=== PATIENT | male | born 1950 | race African-American/Black ===

== ENCOUNTER 2018-11-19 19:01 | Inpatient (IN) | payer OTHER ==
--- NOTE | 2018-11-19 19:41 | PDOC ---
History of Present Illness - General Chief Complaint: Tremors Stated Complaint: CHILLS/PAIN Time Seen by Provider: 11/19/18 19:27 Past History - Past Medical History Allergies/Adverse Reactions: Allergies Allergy/AdvReac Type Severity Reaction Status Date / Time No Known Allergies Allergy Verified 11/19/18 19:03 CVA: Yes COPD: No Seizures: Yes - Suicide/Smoking/Psychosocial Hx Smoking History: Unknown if ever smoked *Physical Exam - Vital Signs Last Vital Signs Temp Pulse Resp BP Pulse Ox 98.3 F 112 H 18 197/92 H 95 11/19/18 19:04 11/19/18 19:04 11/19/18 19:04 11/19/18 19:04 11/19/18 19:04
[2018-11-19] MEDS ORDERED: SODIUM CHLORIDE 0.9% 500 ML INFUS.BAG IV ONE (19:52)
[2018-11-19] MEDS ORDERED: ACETAMINOPHEN 1000 MG/100 ML VIAL (NON FORMULARY) IVPB ONE (19:52)
[2018-11-19] MEDS ORDERED: ACETAMINOPHEN INJECTION 100 ML IVPB ONE (19:56)
[2018-11-19 20:22] LABS: BASO % 0.6 % (0-2.0); EOS % 0.4 % (0-4.5); HEMATOCRIT 38.3 % (35.4-49); HEMOGLOBIN 13.1 GM/dL (11.7-16.9); LYMPH % 20.2 % (8-40); MCH 35.2 pg (25.7-33.7); MCHC 34.3 g/dl (32.0-35.9); MEAN CELL VOLUME 102.8 fl (80-96); MEAN PLT VOLUME 10.4 fl (7.5-11.1); NEUT % 72.8 % (42.8-82.8); PLATELET COUNT 149 K/MM3 (134-434); RBC 3.73 M/mm3 (4.00-5.60); RDW 13.4 % (11.9-15.9); WHITE BLOOD COUNT 3.9 K/mm3 (4.0-10.0)
[2018-11-19 20:26] LABS: INR 1.17 (0.83-1.09); PROTHROMBIN TIME (PATIENT) 13.8 SEC (9.7-13.0)
[2018-11-19 20:55] LABS: ALBUMIN 4.2 g/dl (3.4-5.0); BILIRUBIN,TOTAL 0.4 mg/dL (0.2-1); CALCIUM 9.3 mg/dL (8.5-10.1); CREATININE 1.2 mg/dL (0.55-1.3); POTASSIUM 3.7 mmol/L (3.5-5.1); TOT PROT 7.7 g/dl (6.4-8.2)
--- NOTE | 2018-11-19 22:31 | HP ---
CHIEF COMPLAINT: Episode of right hand tremor (similar to previous seizures) earlier today. PCP: Dr. Ackerman HISTORY OF PRESENT ILLNESS: This is a 68 year old male with PMH significant for HTN, HIV, CVA, and multiple seizures. He presented to the ER with complaints of a right hand tremor around 7 ,8 AM on 11/19. He states that the episode began suddenly , and he had to use his left hand to hold his right hand to keep it from moving. He bañuelos snot recall how long the episode lasted, and does not remember whether it was precluded by any aura like symptoms. He states that he lied down when this was happening, and called out to his son, who he lives with, for help. He believes that this tremor is very similar to his previous seizures, the last of which occurred in 2018. He denies any loss of consciousness, falling down, or head trauma, but admits that he does not remember much of what happened from the time of the seizure to his presentation to the ER. He denies any associated fevers, chills, dizziness, light headedness, SOB, chest pain, cough,palpitations, nausea, vomiting, diarrhea, constipation, dysuria, urgency, or hematuria. He states that he is compliant with all his medications. He denies any recent travel, illness exposure to sick contacts, or changes in his medications. He does not know when he had his CD4 count or viral load last tested. ER course was notable for: (1) CT Head: Encephalomalacia in temporal lobe, no acute pathology (2) Lactid Acid 2.5 (3) B/P 197/92 Recent Travel: None PAST MEDICAL HISTORY: HTN, HIV, CVA, and multiple seizures PAST SURGICAL HISTORY: Patient unable to recall Social History: Smoking: Quit 15 years ago, smoked infrequently Alcohol: No recent use Drugs: denies Allergies No Known Allergies Allergy (Verified 11/19/18 19:03) HOME MEDICATIONS: Home Medications Medication Instructions Recorded Darunavir Ethanolate [Prezista -] 600 mg PO BID 11/19/18 Etravirine [Intelence -] 200 mg PO BID 11/19/18 Gabapentin 300 mg PO TID 11/19/18 Hydrochlorothiazide 25 mg PO DAILY 11/19/18 Lamivudine 150 mg PO BID 11/19/18 Levetiracetam 1,000 mg PO BID 11/19/18 Omeprazole 20 mg PO DAILY 11/19/18 Ritonavir 100 mg PO BID 11/19/18 REVIEW OF SYSTEMS CONSTITUTIONAL: Absent: fever, chills, diaphoresis, generalized weakness, malaise, loss of appetite, weight change HEENT: Absent: rhinorrhea, nasal congestion, throat pain, throat swelling, difficulty swallowing, mouth swelling, ear pain, eye pain, visual changes CARDIOVASCULAR: Absent: chest pain, syncope, palpitations, irregular heart rate, lightheadedness , peripheral edema RESPIRATORY: Absent: cough, shortness of breath, dyspnea with exertion, orthopnea, wheezing, stridor, hemoptysis GASTROINTESTINAL: Absent: abdominal pain, abdominal distension, nausea, vomiting, diarrhea, constipation, melena, hematochezia GENITOURINARY: Absent: dysuria, frequency, urgency, hesitancy, hematuria, flank pain, genital pain MUSCULOSKELETAL: Absent: myalgia, arthralgia, joint swelling, back pain, neck pain SKIN: Absent: rash, itching, pallor HEMATOLOGIC/IMMUNOLOGIC: Absent: easy bleeding, easy bruising, lymphadenopathy, frequent infections ENDOCRINE: Absent: unexplained weight gain, unexplained weight loss, heat intolerance, cold intolerance NEUROLOGIC: Absent: headache, focal weakness or paresthesias, dizziness, unsteady gait, seizure, mental status changes, bladder or bowel incontinence PSYCHIATRIC: Absent: anxiety, depression, suicidal or homicidal ideation, hallucinations. PHYSICAL EXAMINATION Vital Signs - 24 hr 11/19/18 11/19/18 19:04 19:41 Temperature 98.3 F Pulse Rate 112 H Respiratory 18 Rate Blood Pressure 197/92 H O2 Sat by Pulse 95 98 Oximetry (%) GENERAL: AOx2, cooperative HEAD: Normal with no signs of trauma. 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 Moist mucous membranes. NECK: Normal range of motion, supple without lymphadenopathy, JVD, or masses. LUNGS: Breath sounds equal, clear to auscultation bilaterally. No wheezes, and no crackles. No accessory muscle use. HEART: Regular rate and rhythm, normal S1 and S2 without murmur, rub or gallop. ABDOMEN: Soft, nontender, not distended, normoactive bowel sounds, no guarding, no rebound, no masses. No hepatomegaly or splenomegaly. MUSCULOSKELETAL: Normal range of motion at all joints. No bony deformities or tenderness. No CVA tenderness. UPPER EXTREMITIES: 2+ pulses, warm, well-perfused. No cyanosis. No clubbing. No peripheral edema. LOWER EXTREMITIES: 2+ pulses, warm, well-perfused. No calf tenderness. No peripheral edema. NEUROLOGICAL: Motor 5/5 B/L Sensations intact B/L Cranial nerves II-XII intact. PSYCHIATRIC: Cooperative. Good eye contact. Appropriate mood and affect. SKIN: Warm, dry, normal turgor, no rashes or lesions noted, normal capillary refill. Laboratory Results - last 24 hr 11/19/18 11/19/18 11/19/18 20:03 20:03 20:03 WBC 3.9 L RBC 3.73 L Hgb 13.1 Hct 38.3 MCV 102.8 H MCH 35.2 H MCHC 34.3 RDW 13.4 Plt Count 149 MPV 10.4 Absolute Neuts (auto) 2.8 Neutrophils % 72.8 Lymphocytes % 20.2 Monocytes % 6.0 Eosinophils % 0.4 Basophils % 0.6 Nucleated RBC % 0 PT with INR INR Sodium 142 Potassium 3.7 Chloride 106 Carbon Dioxide 25 Anion Gap 11 BUN 17.0 Creatinine 1.2 Est GFR (CKD-EPI)AfAm 72.59 Est GFR (CKD-EPI)NonAf 62.63 Random Glucose 105 Lactic Acid Calcium 9.3 Total Bilirubin 0.4 AST 18 ALT 20 Alkaline Phosphatase 95 LD Total 164 Creatine Kinase 182 Creatine Kinase Index 0.9 CK-MB (CK-2) 1.8 Troponin I < 0.02 Total Protein 7.7 Albumin 4.2 Lipase 11/19/18 11/19/18 11/19/18 20:03 20:03 20:15 WBC RBC Hgb Hct MCV MCH MCHC RDW Plt Count MPV Absolute Neuts (auto) Neutrophils % Lymphocytes % Monocytes % Eosinophils % Basophils % Nucleated RBC % PT with INR 13.80 H INR 1.17 H Sodium Potassium Chloride Carbon Dioxide Anion Gap BUN Creatinine Est GFR (CKD-EPI)AfAm Est GFR (CKD-EPI)NonAf Random Glucose Lactic Acid 2.5 H* Calcium Total Bilirubin AST ALT Alkaline Phosphatase LD Total Creatine Kinase Creatine Kinase Index CK-MB (CK-2) Troponin I Total Protein Albumin Lipase 121 ASSESSMENT/PLAN: This is a 68 year old male with PMH significant for HTN, HIV, CVA, and multiple seizures. He presented to the ER with complaints of a right hand tremor around 7 ,8 AM on 11/19. #Tremor right hand - Similar to previous episodes of seizures, suspicion for repeat seizure is high - Keppra 1000mg given - On Keppra 1000mg BID at home - Neuro (Dr. Dejesus) consulted - Neurochecks Q4H - Fall/Seizure precautions #Lactic Acidosis - 2.5 -> - Will continue to trend - N/S @ 100 (1x given in ER) #Hx of HTN - 197/97 -> 151/86 spontaneously - Add Norvasc 5mg if BP uncontrolled #Hx of HIV - Home meds resumed - CD4 and HIV viral load sent. If CD4 count is low, consider MRI to check for infectious etiology of seizures (toxoplasmosis, lymphoma) #FEN - N/S @ 100 (1x given in ER) - Mg, Phos ordered - NPO #DVT PE - Heparin 5000 SQ Visit type - Emergency Visit Emergency Visit: Yes ED Registration Date: 11/19/18 Care time: The patient presented to the Emergency Department on the above date and was hospitalized for further evaluation of their emergent condition. - New Patient This patient is new to me today: Yes Date on this admission: 11/20/18 - Critical Care Critical Care patient: No ATTENDING PHYSICIAN STATEMENT I saw and evaluated the patient. I reviewed the resident's note and discussed the case with the resident. I agree with the resident's findings and plan as documented. SUBJECTIVE: OBJECTIVE: ASSESSMENT AND PLAN:
--- NOTE | 2018-11-19 22:38 | PDOC ---
Documentation entered by Deonna Cain SCRIBE, acting as scribe for Tonya Valentino MD. Tonya Valentino MD: This documentation has been prepared by the Payton wynn Nirvannie, SCRIBE, under my direction and personally reviewed by me in its entirety. I confirm that the documentation accurately reflects all work, treatment, procedures, and medical decision making performed by me. History of Present Illness - General Chief Complaint: Tremors Stated Complaint: CHILLS/PAIN Time Seen by Provider: 11/19/18 19:27 History Source: Family (Son.) Exam Limitations: Clinical Condition - History of Present Illness Initial Comments: 11/19/18 21:18 The patient is a 68 year old male, with a significant past medical history of HTN, seizures (last seizure a year ago), HIV, and history of CVA, who presents to the emergency department with, AMS and right hand tremors. As per patients son, the patient is having tremors to the right arm (similar to previous seizures),has difficulty answering questions, is experiencing chills. Son notes the patient is independent at baseline. Son denies any nausea, vomiting, or urinary/bowel symptoms. Allergies: KATHY Neurologist: Kylee Past History - Past Medical History Allergies/Adverse Reactions: Allergies Allergy/AdvReac Type Severity Reaction Status Date / Time No Known Allergies Allergy Verified 11/19/18 19:03 Home Medications: Ambulatory Orders Darunavir Ethanolate [Prezista -] 600 mg PO BID 11/19/18 Etravirine [Intelence -] 200 mg PO BID 11/19/18 Gabapentin 300 mg PO TID 11/19/18 Hydrochlorothiazide 25 mg PO DAILY 11/19/18 Lamivudine 150 mg PO BID 11/19/18 Levetiracetam 1,000 mg PO BID 11/19/18 Omeprazole 20 mg PO DAILY 11/19/18 Ritonavir 100 mg PO BID 11/19/18 CVA: Yes COPD: No Seizures: Yes - Suicide/Smoking/Psychosocial Hx Smoking History: Unknown if ever smoked Review of Systems - Review of Systems Able to Perform ROS?: No Comments:: 11/19/18 21:18 Unable to perform ROS secondary to AMS. *Physical Exam - Vital Signs Last Vital Signs Temp Pulse Resp BP Pulse Ox 98.3 F 112 H 18 197/92 H 98 11/19/18 19:04 11/19/18 19:04 11/19/18 19:04 11/19/18 19:04 11/19/18 19:41 - Physical Exam Comments: 11/19/18 21:18 GENERAL: Awake, alert, and fully oriented, in no acute distress HEAD: No signs of trauma EYES: +Right eye blindness. ENT: Auricles normal inspection, hearing grossly normal, nares patent, oropharynx clear without exudates. Moist mucosa NECK: Normal ROM, supple, no lymphadenopathy, JVD, or masses LUNGS: Breath sounds equal, clear to auscultation bilaterally. No wheezes, and no crackles HEART: Regular rate and rhythm, normal S1 and S2, no murmurs, rubs or gallops ABDOMEN: Soft, nontender, normoactive bowel sounds. No guarding, no rebound. No masses EXTREMITIES: Normal range of motion, no edema. No clubbing or cyanosis. No cords, erythema, or tenderness NEUROLOGICAL: +Strength 4/5 on the right. SKIN: Warm, Dry, normal turgor, no rashes or lesions noted Heart Score/ECG Review - ECG Intrepretation Rhythm: Regular Rhythm - [place]: Normal - P and MI Prominent R with upright T in V1 (true posterior SD): No Delta Wave(s) Present: No WPW: No - QRS Poor R Wave Progression: No Q Wave Present: No - ST and T Early Repolarization: No Non Specific ST-T Wave changes: No - ECG Impressions Normal ECG: Yes Non-specific ST Elevation: No Ischemic Changes: No Bradycardia: No Torsades perla Pointes: No ED Treatment Course - LABORATORY CBC & Chemistry Diagram: 11/19/18 20:03 11/19/18 20:03 - ADDITIONAL ORDERS Additional order review: Laboratory Results 11/19/18 20:03 PT with INR 13.80 H INR 1.17 H 11/19/18 20:03 RBC 3.73 L MCV 102.8 H MCHC 34.3 RDW 13.4 MPV 10.4 Neutrophils % 72.8 Lymphocytes % 20.2 Monocytes % 6.0 Eosinophils % 0.4 Basophils % 0.6 - RADIOLOGY Radiology Studies Ordered: Category Date Time Status HEAD CT WITHOUT CONTRAST [CT] Stat CT Scan 11/19/18 19:53 Ordered CHEST PA & LAT [RAD] Stat Radiology 11/19/18 20:42 Ordered - Medications Given in the ED: ED Medications Discontinued Medications Generic Name Dose Route Start Last Admin Trade Name Toby PRJosesito Reason Stop Dose Admin Acetaminophen 1,000 mg 11/19/18 19:52 11/19/18 19:54 Ofirmev Injection - IVPB 11/19/18 19:53 1,000 mg ONCE ONE Administration Sodium Chloride 1,000 ml 11/19/18 19:52 11/19/18 19:54 Normal Saline - IV 11/19/18 19:53 1,000 ml ONCE ONE Administration Medical Decision Making - Medical Decision Making 11/19/18 22:35 Patient Name: MARGRET UMAÑA THIS IS A PRELIMINARY REPORT FROM [facility] DATE OF SERVICE: 2018-11-19 21:04:24 IMAGES: 144 EXAM: HEAD CT WITHOUT CONTRAST HISTORY: Confusion. COMPARISON: None. FINDINGS: Encephalomalacia is seen within the left temporal lobe and to a lesser degree left parietal lobe. No evidence for acute hemorrhage. Mild global volume loss. Vascular calcifications noted. No hydrocephalus or extra-axial fluid collection. No acute calvarial abnormalities. IMPRESSION: 1. No evidence for acute intracranial pathology. *DC/Admit/Observation/Transfer Diagnosis at time of Disposition: Altered mental status, HIV disease - Discharge Dispostion Condition at time of disposition: Guarded Decision to Admit order: Yes - Referrals - Patient Instructions - Post Discharge Activity
[2018-11-20] MEDS ORDERED: levETIRAcetam 500 MG/5 ML INJECTION VIAL IVPB ONE ×2 (00:08→00:16)
[2018-11-20 00:33] LABS: EPI CELLS 0.8 /HPF (0-5/HPF); HYALINE CASTS 2 /lpf (0-8); URINE APPEARANCE CLEAR; URINE BACTERIA 1.4 /hpf (NEGATIVE); URINE BILIRUBIN NEGATIVE (NEGATIVE); URINE COLOR YELLOW; URINE GLUCOSE (UA) NEGATIVE (NEGATIVE); URINE KETONE NEGATIVE (NEGATIVE); URINE LEUK ESTERASE NEGATIVE (NEGATIVE); URINE NITRITE NEGATIVE (NEGATIVE); URINE PROTEIN 1+ (NEGATIVE); URINE RBC 1 /hpf (0-4); URINE WBC 0 /hpf (0-5)
--- NOTE | 2018-11-20 00:54 | PN ---
Teaching Attending Note Name of Resident: Shay Lopes ATTENDING PHYSICIAN STATEMENT I saw and evaluated the patient. I reviewed the resident's note and discussed the case with the resident. I agree with the resident's findings and plan as documented. SUBJECTIVE: 68 year old male with PMH significant for HTN, HIV, CVA, and seizure disorder. Brought in with right hand tremors AMS with son, started about 2 hours before arrival. Tremors to the right arm- allegedly similar to prior seizure episodes. Patient himself offers very little history. OBJECTIVE: Last Vital Signs Temp Pulse Resp BP Pulse Ox 98.1 F 91 H 20 151/86 98 11/19/18 23:46 11/19/18 23:46 11/19/18 23:46 11/19/18 23:46 11/19/18 23:46 general -nontoxic heent -atrauamtic, nc neck -supple cv-s1+S2+, rrr chest clear abd-soft, nt, bs+ ext - no pedal edema Abnormal Lab Results 11/19/18 11/19/18 11/19/18 20:03 20:03 20:15 WBC 3.9 L RBC 3.73 L MCV 102.8 H MCH 35.2 H PT with INR 13.80 H INR 1.17 H Lactic Acid 2.5 H* Urine Protein 11/19/18 23:08 WBC RBC MCV MCH PT with INR INR Lactic Acid Urine Protein 1+ H head ct reviewed -left parietal lobe extensive encephalomalacia, no acute insults imaging studies reviewed ASSESSMENT AND PLAN: #Likely breakthrough seizure. May be from old stroke with resultant left parietal encephalomalacia -admit to med/surg -load 1g keppra IV -neuro checks -keep npo -monitor vs closely -c/w keppra 1g bid IV for now -neurology f/u #HIV with unknown CD4 count -obtain CD4 and HIV viral load - from PCP and/or order here in hospital -hold HIV meds as his listed regimen appears to be incomplete -obtain complete HIV regimen from pharmacy -if CD4 count significantly low, should consider brain MRI to r/o alternative causes of seizures such as toxoplasmosis or lymphoma -if significantly low CD, would start PJP, MAC prophylaxis #lactic acidosis -probably related to seizure episode -IV fluid hydration -trend lactate #Leukopenia - may be related to underlying HIV DVT prophylaxis
[2018-11-20] MEDS ORDERED: SODIUM CHLORIDE 1,000 ML IV SCH ×2 (04:00→06:32)
[2018-11-20] MEDS ORDERED: GABAPENTIN 100 MG CAPSULE (FP) ONE (06:15)
[2018-11-20] MEDS: GABAPENTIN 300 MG CAPSULE (FP) PO SCH ×2 (06:24→15:34)
[2018-11-20 07:11] LABS: BASO % 0.6 % (0-2.0); HEMATOCRIT 35.7 % (35.4-49); HEMOGLOBIN 12.4 GM/dL (11.7-16.9); LYMPH % 38.3 % (8-40); MCH 35.8 pg (25.7-33.7); MCHC 34.6 g/dl (32.0-35.9); MEAN CELL VOLUME 103.5 fl (80-96); MEAN PLT VOLUME 10.3 fl (7.5-11.1); MONO % 7.8 % (3.8-10.2); NEUT % 52.3 % (42.8-82.8); PLATELET COUNT 131 K/MM3 (134-434); RBC 3.45 M/mm3 (4.00-5.60); RDW 13.7 % (11.9-15.9); WHITE BLOOD COUNT 4.9 K/mm3 (4.0-10.0)
[2018-11-20 07:26] LABS: ALBUMIN 3.7 g/dl (3.4-5.0); BILIRUBIN,TOTAL 0.8 mg/dL (0.2-1); BLOOD UREA NITROGEN 13.2 mg/dL (7-18); CALCIUM 8.9 mg/dL (8.5-10.1); PHOSPHOROUS 2.6 mg/dL (2.5-4.9); POTASSIUM 3.6 mmol/L (3.5-5.1)
--- NOTE | 2018-11-20 08:43 | PN ---
Physical Exam: SUBJECTIVE: Patient seen and examined; no new complaints. Somewhat poor historian. Lactate repeat pending. Pending ID consultation, neurology consult. Continue with neuro checks and seizure precautions. CXR shows multiple old rib fractures CT head noted; MRI w/w/o pending Thrombocytopenia noted; likely 2/2 HIV Macrocytosis without anemia demonstrated 10 sys ROS done and negative aside from HPI OBJECTIVE: Vital Signs Period Temp Pulse Resp BP Sys/Mercado Pulse Ox Last 24 Hr 98.1 F-98.3 F 64-112 18-20 151-197/81-92 87-98 GENERAL: The patient is awake, alert, and fully oriented, in no acute distress. HEAD: Normal with no signs of trauma. EYES: PERRL, extraocular movements intact, sclera anicteric, conjunctiva clear. No ptosis. ENT: Ears normal, nares patent, oropharynx clear without exudates, moist mucous membranes. NECK: Trachea midline, full range of motion, supple. LUNGS: Breath sounds equal, clear to auscultation bilaterally, no wheezes HEART: Regular rate and rhythm, S1, S2 without murmur, rub or gallop. ABDOMEN: Soft, nontender, nondistended, normoactive bowel sounds, no guarding EXTREMITIES: 2+ pulses, warm, well-perfused, no edema. NEUROLOGICAL: Cranial nerves II through XII grossly intact. Normal speech, gait not observed. PSYCH: Normal mood, normal affect. SKIN: Warm, dry, normal turgor, no rashes or lesions noted Laboratory Results - last 24 hr 11/19/18 11/19/18 11/19/18 20:03 20:03 20:03 WBC 3.9 L RBC 3.73 L Hgb 13.1 Hct 38.3 MCV 102.8 H MCH 35.2 H MCHC 34.3 RDW 13.4 Plt Count 149 MPV 10.4 Absolute Neuts (auto) 2.8 Neutrophils % 72.8 Lymphocytes % 20.2 Monocytes % 6.0 Eosinophils % 0.4 Basophils % 0.6 Nucleated RBC % 0 PT with INR INR Sodium 142 Potassium 3.7 Chloride 106 Carbon Dioxide 25 Anion Gap 11 BUN 17.0 Creatinine 1.2 Est GFR (CKD-EPI)AfAm 72.59 Est GFR (CKD-EPI)NonAf 62.63 Random Glucose 105 Lactic Acid Calcium 9.3 Phosphorus Magnesium Total Bilirubin 0.4 AST 18 ALT 20 Alkaline Phosphatase 95 LD Total 164 Creatine Kinase 182 Creatine Kinase Index 0.9 CK-MB (CK-2) 1.8 Troponin I < 0.02 Total Protein 7.7 Albumin 4.2 Lipase Urine Color Urine Appearance Urine pH Ur Specific [place] Urine Protein Urine Glucose (UA) Urine Ketones Urine Blood Urine Nitrite Urine Bilirubin Urine Urobilinogen Ur Leukocyte Esterase Urine WBC (Auto) Urine RBC (Auto) Urine Casts (Auto) U Epithel Cells (Auto) Urine Bacteria (Auto) 11/19/18 11/19/18 11/19/18 20:03 20:03 20:15 WBC RBC Hgb Hct MCV MCH MCHC RDW Plt Count MPV Absolute Neuts (auto) Neutrophils % Lymphocytes % Monocytes % Eosinophils % Basophils % Nucleated RBC % PT with INR 13.80 H INR 1.17 H Sodium Potassium Chloride Carbon Dioxide Anion Gap BUN Creatinine Est GFR (CKD-EPI)AfAm Est GFR (CKD-EPI)NonAf Random Glucose Lactic Acid 2.5 H* Calcium Phosphorus Magnesium Total Bilirubin AST ALT Alkaline Phosphatase LD Total Creatine Kinase Creatine Kinase Index CK-MB (CK-2) Troponin I Total Protein Albumin Lipase 121 Urine Color Urine Appearance Urine pH Ur Specific [place] Urine Protein Urine Glucose (UA) Urine Ketones Urine Blood Urine Nitrite Urine Bilirubin Urine Urobilinogen Ur Leukocyte Esterase Urine WBC (Auto) Urine RBC (Auto) Urine Casts (Auto) U Epithel Cells (Auto) Urine Bacteria (Auto) 11/19/18 11/20/18 11/20/18 23:08 04:45 05:30 WBC RBC Hgb Hct MCV MCH MCHC RDW Plt Count MPV Absolute Neuts (auto) Neutrophils % Lymphocytes % Monocytes % Eosinophils % Basophils % Nucleated RBC % PT with INR INR Sodium 141 Potassium 3.6 Chloride 108 H Carbon Dioxide 26 Anion Gap 8 BUN 13.2 Creatinine 1.0 Est GFR (CKD-EPI)AfAm 90.50 Est GFR (CKD-EPI)NonAf 78.08 Random Glucose 95 Lactic Acid 2.5 H* Calcium 8.9 Phosphorus 2.6 Magnesium 2.0 Total Bilirubin 0.8 AST 17 ALT 17 Alkaline Phosphatase 85 LD Total Creatine Kinase Creatine Kinase Index CK-MB (CK-2) Troponin I Total Protein 7.0 Albumin 3.7 Lipase Urine Color Yellow Urine Appearance Clear Urine pH 6.0 Ur Specific [place] 1.027 Urine Protein 1+ H Urine Glucose (UA) Negative Urine Ketones Negative Urine Blood Negative Urine Nitrite Negative Urine Bilirubin Negative Urine Urobilinogen 1.0 Ur Leukocyte Esterase Negative Urine WBC (Auto) 0 Urine RBC (Auto) 1 Urine Casts (Auto) 2 U Epithel Cells (Auto) 0.8 Urine Bacteria (Auto) 1.4 11/20/18 06:00 WBC 4.9 RBC 3.45 L Hgb 12.4 Hct 35.7 MCV 103.5 H MCH 35.8 H MCHC 34.6 RDW 13.7 Plt Count 131 L MPV 10.3 Absolute Neuts (auto) 2.6 Neutrophils % 52.3 D Lymphocytes % 38.3 D Monocytes % 7.8 Eosinophils % 1.0 D Basophils % 0.6 Nucleated RBC % 0 PT with INR INR Sodium Potassium Chloride Carbon Dioxide Anion Gap BUN Creatinine Est GFR (CKD-EPI)AfAm Est GFR (CKD-EPI)NonAf Random Glucose Lactic Acid Calcium Phosphorus Magnesium Total Bilirubin AST ALT Alkaline Phosphatase LD Total Creatine Kinase Creatine Kinase Index CK-MB (CK-2) Troponin I Total Protein Albumin Lipase Urine Color Urine Appearance Urine pH Ur Specific [place] Urine Protein Urine Glucose (UA) Urine Ketones Urine Blood Urine Nitrite Urine Bilirubin Urine Urobilinogen Ur Leukocyte Esterase Urine WBC (Auto) Urine RBC (Auto) Urine Casts (Auto) U Epithel Cells (Auto) Urine Bacteria (Auto) Active Medications Generic Name Dose Route Start Last Admin Trade Name Freq PRN Reason Stop Dose Admin Darunavir 600 mg 11/20/18 10:00 Prezista - PO BID SANGITA Etravirine 200 mg 11/20/18 10:00 Intelence - PO BID SANGITA Gabapentin 300 mg 11/20/18 06:00 11/20/18 06:24 Neurontin - PO 300 mg TID SANGITA Administration Heparin Sodium (Porcine) 5,000 unit 11/20/18 14:00 Heparin - SQ TID SANGITA Hydrochlorothiazide 25 mg 11/20/18 10:00 Hctz - PO DAILY SANGITA Sodium Chloride 1,000 mls @ 100 mls/hr 11/20/18 06:32 11/20/18 06:44 Normal Saline - IV 100 mls/hr ASDIR SANGITA Administration Lamivudine 150 mg 11/20/18 10:00 Epivir - PO BID SANGITA Levetiracetam 1,000 mg 11/20/18 10:00 Keppra - PO BID SANGITA Pantoprazole Sodium 20 mg 11/20/18 10:00 Protonix - PO DAILY SANGITA Ritonavir 100 mg 11/20/18 10:00 Norvir - PO BID SANGITA Discussed imaging and diagnostics above ASSESSMENT/PLAN: Patient presents with suspected seizure; he has HIV as well with CD4 count pending. MRI pending. Neuro and ID consutlations pending. Repeat lactate pending. Problems include: -Suspected Seizure (Got IV keppra, continue 1000 BID and FU with neuro consult) -Positive lactate -Neuroimaging changes in the setting of HIV with unknown CD4+ count/old CVA ( MRI pending, given HIV want to ensure no CUTTER HOT KNIFE-cause of sz) -Macrocytosis without anemia (B12, folate pending) -Hx CVA (Verify and continue home medciations) -Hx HTN (Monitor; verify and continue home medications) -GERD (continue home protonix) Visit type - Emergency Visit Emergency Visit: No - New Patient This patient is new to me today: No - Critical Care Critical Care patient: No
[2018-11-20] MEDS ORDERED: HYDROCHLOROTHIAZIDE 25 MG TABLET (FP) PO SCH (10:00)
[2018-11-20] MEDS ORDERED: levETIRAcetam 500 MG TABLET (FP) PO SCH (10:00)
[2018-11-20] MEDS ORDERED: lamiVUDine 150 MG TABLET PO SCH (10:00)
[2018-11-20] MEDS ORDERED: DARUNAVIR ETHANOLATE 600 MG TAB PO SCH (10:00)
[2018-11-20] MEDS ORDERED: RITONAVIR 100 MG TABLET PO SCH (10:00)
[2018-11-20] MEDS ORDERED: PANTOPRAZOLE 20 MG TABLET (FP) PO SCH (10:00)
[2018-11-20] MEDS ORDERED: ETRAVIRINE 200 MG TABLET PO SCH (10:00)
--- NOTE | 2018-11-20 10:28 | EKG ---
Test Reason : Blood Pressure : / mmHG Vent. Rate : 070 BPM Atrial Rate : 070 BPM P-R Int : 162 ms QRS Dur : 086 ms QT Int : 396 ms P-R-T Axes : 026 -07 004 degrees QTc Int : 427 ms NORMAL SINUS RHYTHM NORMAL ECG NO PREVIOUS ECGS AVAILABLE Confirmed by CARINA SINGH MD ([id number]) on 11/20/2018 10:28:02 AM Referred By: Confirmed By:CARINA SINGH MD
--- NOTE | 2018-11-20 10:52 | PN ---
Progress Note (short form) - Note Progress Note: ID CONSULT DICTATED ALTERED MENTAL STATUS R HAND TREMOR ? SZ HIV+ S/P CVA SEIZURE DISORDER CONT ART OBTAIN RECENT VIRAL MARKERS
[2018-11-20 11:54] VITALS: BMI 24.8
--- NOTE | 2018-11-20 13:45 | CONS ---
INFECTIOUS DISEASE CONSULTATION DATE OF CONSULTATION: DATE OF DICTATION: 11/20/2018 HISTORY: The patient is a 68-year-old male who was evaluated for HIV infection. History was obtained from the chart as he cannot give a reliable history. He was admitted to the hospital on November 19, 2018, after he was noted to have altered mental status and tremors of the right hand. Patient has a history of stroke and seizure disorder. He was evaluated in the emergency room where a CAT scan of the head was negative for acute infarct or bleed. He is scheduled to have an MRI. Infectious Disease consultation was requested for management of his HIV infection. He is awake and alert. He answers questions appropriately. Patient is unable to tell me the name of the clinic in which he is followed, the doctor's name, the names of his antiretroviral medication, and most recent CD4, lymphocyte count, and HIV viral load. Patient states he has been HIV positive for many years. He reports being adherent to his antiretroviral therapy. States that his viral load is undetectable and T cells are good. He is unable to provide any more detailed information. PAST MEDICAL HISTORY: Positive for HIV infection for many years. Denies history of opportunistic infections or AIDS diagnosis. Also includes hypertension, seizure disorder, stroke. ALLERGIES: No known allergies. MEDICATIONS: Norvir, Prezista, Intelence, Epivir. SOCIAL HISTORY: Denies tobacco or alcohol use. SYSTEMS REVIEW: Neurologic: Positive history of stroke and seizure disorder. Cardiac: Negative chest pain or palpitations. Respiratory: Negative cough or sputum production. Gastrointestinal: Negative vomiting or diarrhea. Genitourinary: Negative for urinary tract infection. LABORATORY DATA: White blood cell count 4.9, hematocrit 35.7, platelets 131, creatinine 1.0. Urinalysis negative. Lactic acid 2.5. Liver enzymes normal. PHYSICAL EXAMINATION: General: He is seated in a stretcher. He is in no acute distress. Vital Signs: Temperature 98.1, blood pressure 155/81, pulse 64 regular, respirations 18 per minute. HEENT: Sclerae anicteric. Oropharynx, poor dentition. Neck: Supple. Heart: Sounds S1, S2. Lungs: Clear. Abdomen: Soft. Nontender. Extremities: Negative for edema. Neurologic: No hand tremor noted. IMPRESSION: 1. Altered mental status, unclear etiology. 2. Right hand tremor, rule out seizures. 3. Human immunodeficiency virus positive. 4. Status post cerebrovascular accident. 5. History of seizure disorder. PLAN: Continue antiretroviral therapy. We will obtain CD4 lymphocyte count. Obtain recent viral markers. Neurology evaluation. MRI of the brain. We will follow. Thank you for the kind referral. MARTY MCKENNA M.D. EMILIA/[id number]
[2018-11-20] MEDS ORDERED: HEPARIN NA (PORCINE) 5,000 UNITS/ML 1ML VIAL SQ SCH (14:00)
--- NOTE | 2018-11-20 17:37 | CON.NEURO ---
Consult - History of Present Illness History of Present Illness: 68 year old male with PMH significant for HTN, HIV, CVA, and multiple seizures. He presented to the ER with complaints of a right hand tremor around 7,8 AM on . He states that the episode began suddenly , and he had to use his left hand to hold his right hand to keep it from moving. He bañuelos snot recall how long the episode lasted, and does not remember whether it was precluded by any aura like symptoms. He states that he lied down when this was happening, and called out to his son, who he lives with, for help. He believes that this tremor is very similar to his previous seizures, the last of which occurred in 2018. He denies any loss of consciousness, falling down, or head trauma, but admits that he does not remember much of what happened from the time of the seizure to his presentation to the ER. He denies any associated fevers, chills, dizziness, light headedness, SOB, chest pain, cough,palpitations, nausea, vomiting, diarrhea, constipation, dysuria, urgency, or hematuria. He states that he is compliant with all his medications. He denies any recent travel, illness exposure to sick contacts, or changes in his medications. He does not know when he had his CD4 count or viral load last tested. On keppra 1000BID ; states compliant with RX. CT HD : old left frontal and temporal infarcts. - Smoking History Smoking history: Unknown if ever smoked Home Medications - Allergies Allergies/Adverse Reactions: Allergies Allergy/AdvReac Type Severity Reaction Status Date / Time No Known Allergies Allergy Verified 11/19/18 19:03 - Home Medications Home Medications: Ambulatory Orders Darunavir Ethanolate [Prezista -] 600 mg PO BID 11/19/18 Etravirine [Intelence -] 200 mg PO BID 11/19/18 Gabapentin 300 mg PO TID 11/19/18 Hydrochlorothiazide 25 mg PO DAILY 11/19/18 Lamivudine 150 mg PO BID 11/19/18 Levetiracetam 1,000 mg PO BID 11/19/18 Omeprazole 20 mg PO DAILY 11/19/18 Ritonavir 100 mg PO BID 11/19/18 Physical Exam-Neuro Vital Signs: Vital Signs Temperature 98.2 F 11/20/18 14:00 Pulse Rate 90 11/20/18 14:00 Respiratory Rate 18 11/20/18 14:00 Blood Pressure 144/50 L 11/20/18 14:00 O2 Sat by Pulse Oximetry (%) 98 11/20/18 11:19 Labs: CBC, BMP 11/20/18 06:00 11/20/18 05:30 INR, PTT INR 1.17 (0.83-1.09) H 11/19/18 20:03 Assessment/Plan 68 year old male with PMH significant for HTN, HIV, CVA, and multiple seizures. He presented to the ER with complaints of a right hand tremor around 7,8 AM on . He states that the episode began suddenly , and he had to use his left hand to hold his right hand to keep it from moving. He bañuelos snot recall how long the episode lasted, and does not remember whether it was precluded by any aura like symptoms. He states that he lied down when this was happening, and called out to his son, who he lives with, for help. He believes that this tremor is very similar to his previous seizures, the last of which occurred in 2018. He denies any loss of consciousness, falling down, or head trauma, but admits that he does not remember much of what happened from the time of the seizure to his presentation to the ER. He denies any associated fevers, chills, dizziness, light headedness, SOB, chest pain, cough,palpitations, nausea, vomiting, diarrhea, constipation, dysuria, urgency, or hematuria. He states that he is compliant with all his medications. He denies any recent travel, illness exposure to sick contacts, or changes in his medications. He does not know when he had his CD4 count or viral load last tested. On keppra 1000BID ; states compliant with RX. AP : breakthrough seizure , likely sequel from old stroke , back at baseline R sided arm shaking with old left frontal temporal infarcts In this scenario would inc Keppra to 1500BID; if another event will likely need to start another AED otherwise stable can FU in clinic DR VILLEDA
--- NOTE | 2018-11-20 18:36 | DS ---
Physical Exam: SUBJECTIVE: Patient seen and examined; no further seizure activity. Cleared by neurology. No further shaking of hand. He is compliant with AEDs. Neurology saw him and increased his Keppra to 1500 BID. He can followup with them in clinic. No new complaints. Per History and Physical Subjective: "This is a 68 year old male with PMH significant for HTN, HIV, CVA, and multiple seizures. He presented to the ER with complaints of a right hand tremor around 7,8 AM on 11/19. He states that the episode began suddenly , and he had to use his left hand to hold his right hand to keep it from moving. He bañuelos snot recall how long the episode lasted, and does not remember whether it was precluded by any aura like symptoms. He states that he lied down when this was happening, and called out to his son, who he lives with, for help. He believes that this tremor is very similar to his previous seizures, the last of which occurred in 2018. He denies any loss of consciousness, falling down, or head trauma, but admits that he does not remember much of what happened from the time of the seizure to his presentation to the ER. He denies any associated fevers, chills, dizziness, light headedness, SOB, chest pain, cough,palpitations, nausea, vomiting, diarrhea, constipation, dysuria, urgency, or hematuria. He states that he is compliant with all his medications. He denies any recent travel, illness exposure to sick contacts, or changes in his medications. He does not know when he had his CD4 count or viral load last tested. " Per neurology Assessment and Plan: "68 year old male with PMH significant for HTN, HIV, CVA, and multiple seizures. He presented to the ER with complaints of a right hand tremor around 7,8 AM on 11/19. He states that the episode began suddenly , and he had to use his left hand to hold his right hand to keep it from moving. He bañuelos snot recall how long the episode lasted, and does not remember whether it was precluded by any aura like symptoms. He states that he lied down when this was happening, and called out to his son, who he lives with , for help. He believes that this tremor is very similar to his previous seizures, the last of which occurred in 2018. He denies any loss of consciousness, falling down, or head trauma, but admits that he does not remember much of what happened from the time of the seizure to his presentation to the ER. He denies any associated fevers, chills, dizziness, light headedness, SOB, chest pain, cough,palpitations, nausea, vomiting, diarrhea, constipation, dysuria, urgency, or hematuria. He states that he is compliant with all his medications. He denies any recent travel, illness exposure to sick contacts, or changes in his medications. He does not know when he had his CD4 count or viral load last tested. On keppra 1000BID ; states compliant with RX. AP : breakthrough seizure , likely sequel from old stroke , back at baseline R sided arm shaking with old left frontal temporal infarcts In this scenario would inc Keppra to 1500BID; if another event will likely need to start another AED otherwise stable can FU in clinic" He had an otherwise uneventful hospital course. Counseled prior to DC and will go home. OBJECTIVE: Vital Signs Period Temp Pulse Resp BP Sys/Mercado Pulse Ox Last 24 Hr 98.1 F-98.9 F 59-112 18-20 135-197/50-92 87-98 PHYSICAL EXAM Unchanged from prior LABS Laboratory Results - last 24 hr 11/19/18 11/19/18 11/19/18 20:03 20:03 20:03 WBC 3.9 L RBC 3.73 L Hgb 13.1 Hct 38.3 MCV 102.8 H MCH 35.2 H MCHC 34.3 RDW 13.4 Plt Count 149 MPV 10.4 Absolute Neuts (auto) 2.8 Neutrophils % 72.8 Lymphocytes % 20.2 Monocytes % 6.0 Eosinophils % 0.4 Basophils % 0.6 Nucleated RBC % 0 PT with INR INR Sodium 142 Potassium 3.7 Chloride 106 Carbon Dioxide 25 Anion Gap 11 BUN 17.0 Creatinine 1.2 Est GFR (CKD-EPI)AfAm 72.59 Est GFR (CKD-EPI)NonAf 62.63 Random Glucose 105 Lactic Acid Calcium 9.3 Phosphorus Magnesium Total Bilirubin 0.4 AST 18 ALT 20 Alkaline Phosphatase 95 LD Total 164 Creatine Kinase 182 Creatine Kinase Index 0.9 CK-MB (CK-2) 1.8 Troponin I < 0.02 Total Protein 7.7 Albumin 4.2 Lipase Urine Color Urine Appearance Urine pH Ur Specific [place] Urine Protein Urine Glucose (UA) Urine Ketones Urine Blood Urine Nitrite Urine Bilirubin Urine Urobilinogen Ur Leukocyte Esterase Urine WBC (Auto) Urine RBC (Auto) Urine Casts (Auto) U Epithel Cells (Auto) Urine Bacteria (Auto) 11/19/18 11/19/18 11/19/18 20:03 20:03 20:15 WBC RBC Hgb Hct MCV MCH MCHC RDW Plt Count MPV Absolute Neuts (auto) Neutrophils % Lymphocytes % Monocytes % Eosinophils % Basophils % Nucleated RBC % PT with INR 13.80 H INR 1.17 H Sodium Potassium Chloride Carbon Dioxide Anion Gap BUN Creatinine Est GFR (CKD-EPI)AfAm Est GFR (CKD-EPI)NonAf Random Glucose Lactic Acid 2.5 H* Calcium Phosphorus Magnesium Total Bilirubin AST ALT Alkaline Phosphatase LD Total Creatine Kinase Creatine Kinase Index CK-MB (CK-2) Troponin I Total Protein Albumin Lipase 121 Urine Color Urine Appearance Urine pH Ur Specific [place] Urine Protein Urine Glucose (UA) Urine Ketones Urine Blood Urine Nitrite Urine Bilirubin Urine Urobilinogen Ur Leukocyte Esterase Urine WBC (Auto) Urine RBC (Auto) Urine Casts (Auto) U Epithel Cells (Auto) Urine Bacteria (Auto) 11/19/18 11/20/18 11/20/18 23:08 04:45 05:30 WBC RBC Hgb Hct MCV MCH MCHC RDW Plt Count MPV Absolute Neuts (auto) Neutrophils % Lymphocytes % Monocytes % Eosinophils % Basophils % Nucleated RBC % PT with INR INR Sodium 141 Potassium 3.6 Chloride 108 H Carbon Dioxide 26 Anion Gap 8 BUN 13.2 Creatinine 1.0 Est GFR (CKD-EPI)AfAm 90.50 Est GFR (CKD-EPI)NonAf 78.08 Random Glucose 95 Lactic Acid 2.5 H* Calcium 8.9 Phosphorus 2.6 Magnesium 2.0 Total Bilirubin 0.8 AST 17 ALT 17 Alkaline Phosphatase 85 LD Total Creatine Kinase Creatine Kinase Index CK-MB (CK-2) Troponin I Total Protein 7.0 Albumin 3.7 Lipase Urine Color Yellow Urine Appearance Clear Urine pH 6.0 Ur Specific [place] 1.027 Urine Protein 1+ H Urine Glucose (UA) Negative Urine Ketones Negative Urine Blood Negative Urine Nitrite Negative Urine Bilirubin Negative Urine Urobilinogen 1.0 Ur Leukocyte Esterase Negative Urine WBC (Auto) 0 Urine RBC (Auto) 1 Urine Casts (Auto) 2 U Epithel Cells (Auto) 0.8 Urine Bacteria (Auto) 1.4 11/20/18 11/20/18 06:00 09:26 WBC 4.9 RBC 3.45 L Hgb 12.4 Hct 35.7 MCV 103.5 H MCH 35.8 H MCHC 34.6 RDW 13.7 Plt Count 131 L MPV 10.3 Absolute Neuts (auto) 2.6 Neutrophils % 52.3 D Lymphocytes % 38.3 D Monocytes % 7.8 Eosinophils % 1.0 D Basophils % 0.6 Nucleated RBC % 0 PT with INR INR Sodium Potassium Chloride Carbon Dioxide Anion Gap BUN Creatinine Est GFR (CKD-EPI)AfAm Est GFR (CKD-EPI)NonAf Random Glucose Lactic Acid 1.6 Calcium Phosphorus Magnesium Total Bilirubin AST ALT Alkaline Phosphatase LD Total Creatine Kinase Creatine Kinase Index CK-MB (CK-2) Troponin I Total Protein Albumin Lipase Urine Color Urine Appearance Urine pH Ur Specific [place] Urine Protein Urine Glucose (UA) Urine Ketones Urine Blood Urine Nitrite Urine Bilirubin Urine Urobilinogen Ur Leukocyte Esterase Urine WBC (Auto) Urine RBC (Auto) Urine Casts (Auto) U Epithel Cells (Auto) Urine Bacteria (Auto) HOSPITAL COURSE: Date of Admission:11/19/18 Date of Discharge: 11/20/18 Diet: Resume home diet Followup: -Neuro: 1-2 weeks -PCP: 3-5 days -ID (Referred to [facility]): 1 week Full Code Minutes to complete discharge: 33 Discharge Summary Reason For Visit: ALTERED MENTAL STATUS/HIV DISEASE Current Active Problems Altered mental status (Acute) HIV disease (Acute) Condition: Guarded - Instructions - Home Medications Comprehensive Discharge Medication List: Ambulatory Orders Darunavir Ethanolate [Prezista -] 600 mg PO BID 11/19/18 Etravirine [Intelence -] 200 mg PO BID 11/19/18 Gabapentin 300 mg PO TID 11/19/18 Hydrochlorothiazide 25 mg PO DAILY 11/19/18 Lamivudine 150 mg PO BID 11/19/18 Levetiracetam 1,000 mg PO BID 11/19/18 Omeprazole 20 mg PO DAILY 11/19/18 Ritonavir 100 mg PO BID 11/19/18 This patient is new to me today: Yes Date on this admission: 11/20/18 Emergency Visit: No Critical Care patient: No - Discharge Referral Referred to [facility] Med P.C.: No
[2018-11-20 19:01] VITALS: BP 143/88; PULSE 67; TEMP 98.9
--- NOTE | 2018-11-22 11:06 | EKG ---
Test Reason : Blood Pressure : / mmHG Vent. Rate : 089 BPM Atrial Rate : 089 BPM P-R Int : 158 ms QRS Dur : 104 ms QT Int : 404 ms P-R-T Axes : 063 -68 087 degrees QTc Int : 491 ms NORMAL SINUS RHYTHM POSSIBLE LEFT ATRIAL ENLARGEMENT INCOMPLETE RIGHT BUNDLE BRANCH BLOCK LEFT ANTERIOR FASCICULAR BLOCK PROLONGED QT ABNORMAL ECG WHEN COMPARED WITH ECG OF 19-NOV-2018 22:38, LEFT ANTERIOR FASCICULAR BLOCK IS NOW PRESENT INCOMPLETE RIGHT BUNDLE BRANCH BLOCK IS NOW PRESENT Confirmed by ANA ALONZO, MAITE ([id number]) on 11/22/2018 11:05:41 AM Referred By: Confirmed By:MAITE PEREZ MD
== END 2018-11-20 19:35 | disposition home or self-care (01) | DRG 57 ==
LOC: JER 19:01 → JERBED 22:38 → J5S 11-20 10:51
PROVIDERS: ADMIT Internal Medicine; ATTEND Internal Medicine
DX: I69.398 Other sequelae of cerebral infarction (principal); E87.2 Acidosis; G40.909 Epilepsy, unspecified, not intractable, without status epilepticus; I10 Essential (primary) hypertension; G93.89 Other specified disorders of brain; D72.819 Decreased white blood cell count, unspecified; D75.89 Other specified diseases of blood and blood-forming organs; K21.9 Gastro-esophageal reflux disease without esophagitis; Z21 Asymptomatic human immunodeficiency virus [HIV] infection status
CPT/HCPCS: 36415; 70450-TC; 71046-TC-FY; 80053; 80177; 81003; 82550; 82553; 83605; 83615; 83690; 83735; 84100; 84484; 85025; 85610; 86359; 86360; 87040; 87536; 93005; 93010; 99285-25; J0131; J1644; J7030